=== PATIENT | male | born 1995 | race Hispanic/Latino ===

== ENCOUNTER 2021-10-05 17:16 | Emergency (ER) | payer BC ==
--- OUTSIDE RECORDS SUMMARY | 2021-10-05 17:19 | XMS REPORT | Continuity of Care Document ---
:1995 Author Organization [facility] t Address [address] [place] [address] Care Team Providers Name Role Phone ANNIE PICKERING Attending Clinician Unavailable Payers Payer Name Policy Type Policy Number Effective Date Expiration Date S [facility] [id number] 2018 [place] (ERS-[employer] 00:00:00 CAPITATED) Problems This patient has no known problems. Allergies, Adverse Reactions, Alerts This patient has no known allergies or adverse reactions. Medications This patient has no known medications. Procedures This patient has no known procedures. Encounters Start End Encounter Admission Attending Care Care Encounter Source Date/Time Date/Time Type Type Clinicians Facility Department ID 2021-08-15 Outpatient IBNS IBNS [id number] Fuentes 11:20:00 [id number] Guero 2021-04-05 2021-04-05 Outpatient YESSENIA PICKERING [id number] 94 [place] 00:00:00 00:00:00 ANNIE da silva Results This patient has no known results.
--- NOTE | 2021-10-05 18:09 | RAD REPORT ---
EXAM DESCRIPTION: RAD - Foot Right 3 View - 10/05/2021 5:57 pm CLINICAL HISTORY: PAIN COMPARISON: <Comparisons> FINDINGS/IMPRESSION: No acute fracture. No malalignment. Plantar and dorsal aspect calcaneal spurprem madden
--- NOTE | 2021-10-05 18:58 | ER ---
Nurse's Notes [facility] Name: Wayne Denny Age: 26 yrs Sex: Male : 1995 Arrival Date: 10/05/2021 Time: 17:33 Bed Waiting Private MD: Diagnosis: Pain in right foot Presentation: 10/05 17:38 Chief complaint: Patient states: right heel pain that began 2 days ago, denies known aa5 injury. Coronavirus screen: At this time, the client does not indicate any symptoms associated with coronavirus-19. Ebola Screen: Patient denies travel to an Ebola-affected area in the 21 days before illness onset. Initial Sepsis Screen: Does the patient meet any 2 criteria? HR > 90 bpm. Does the patient have a suspected source of infection? No. Patient's initial sepsis screen is negative. Risk Assessment: Do you want to hurt yourself or someone else? Patient reports no desire to harm self or others. Onset of symptoms was September 2021. 17:38 Acuity: VANDA 4 aa5 17:38 Method Of Arrival: Ambulatory aa5 Historical: - Allergies: 17:37 No Known Allergies; aa5 - PMHx: 17:37 Hypertensive disorder; aa5 - PSHx: 17:37 None; aa5 - Immunization history:: Adult Immunizations unknown. - Social history:: Smoking status: Patient/guardian denies using tobacco. Assessment: 19:06 Reassessment: Patient is alert, oriented x 3, equal unlabored respirations, skin aa5 warm/dry/pink. Vital Signs: 17:38 BP 172 / 90; Pulse 99; Resp 18 S; Temp 98.9(O); Pulse Ox 99% on R/A; Weight 122.47 kg aa5 (R); Height 5 ft. 10 in. (177.80 cm) (R); 17:38 Body Mass Index 38.74 (122.47 kg, 177.80 cm) aa5 ED Course: 17:33 Patient arrived in ED. aa5 17:35 Swetha Villalobos FNP-C is PHCP. kb 17:35 Jermaine Walker DO is Attending Physician. kb 17:38 Arm band placed on. aa5 17:39 Triage completed. aa5 17:58 Foot Right 3 View XRAY In Process Unspecified. EDMS 19:06 No provider procedures requiring assistance completed. Patient did not have IV access aa5 during this emergency room visit. Administered Medications: No medications were administered Outcome: 18:57 Discharge ordered by MD. bender 19:06 Discharged to home ambulatory, with significant other. aa5 19:06 Condition: stable 19:06 Discharge instructions given to patient, Instructed on discharge instructions, follow up and referral plans. Demonstrated understanding of instructions, follow-up care. 19:06 Patient left the ED. aa5 Signatures: Dispatcher [employer] EDSwetha Ortiz, COMIC BOOK ARTIST-C COMIC BOOK ARTIST-Shannon Callahan RN RN aa5 Corrections: (The following items were deleted from the chart) 17:39 17:38 Pulse 99bpm; Resp 18bpm; Spontaneous; Pulse Ox 99% RA; 122.47 kg Reported; Height aa5 5 ft. 10 in. Reported; BMI: 38.7; aa5
--- NOTE | 2021-10-05 18:58 | EDPHYS ---
Physician Documentation [facility] Name: Wayne Denny Age: 26 yrs Sex: Male : 1995 Arrival Date: 10/05/2021 Time: 17:33 Bed Waiting Private MD: ED Physician Jermaine Walker HPI: 10/05 18:55 This 26 yrs old Male presents to ER via Ambulatory with complaints of Foot kb Pain. 18:55 The patient presents with pain. The complaints affect the right foot. Context: The kb problem was sustained at home, resulted from an unknown cause, the patient can fully bear weight, the patient is able to ambulate. Onset: The symptoms/episode began/occurred 2 day(s) ago. Modifying factors: The symptoms are alleviated by nothing, the symptoms are aggravated by nothing. Associated signs and symptoms: The patient has no apparent associated signs or symptoms. Severity of symptoms: At their worst the symptoms were mild, in the emergency department the symptoms are unchanged. The patient has experienced similar episodes in the past. The patient has not recently seen a physician. Pt reports right heel pain that started 2 days ago. Denies injury. States he has had this pain in the past, but it normally goes away after a few minutes. . Historical: - Allergies: 17:37 No Known Allergies; aa5 - PMHx: 17:37 Hypertensive disorder; aa5 - PSHx: 17:37 None; aa5 - Immunization history:: Adult Immunizations unknown. - Social history:: Smoking status: Patient/guardian denies using tobacco. ROS: 18:54 Constitutional: Negative for fever, chills, and weight loss. kb 18:54 MS/extremity: Positive for pain, of the heel of right foot. 18:54 All other systems are negative. Exam: 18:55 Constitutional: This is a well developed, well nourished patient who is awake, alert, kb and in no acute distress. Head/Face: Normocephalic, atraumatic. ENT: Moist Mucous membranes Respiratory: Respirations even and unlabored. No increased work of breathing. Talking in full sentences Skin: Warm, dry with normal turgor. Normal color. MS/ Extremity: Pulses equal, no cyanosis. Neurovascular intact. Full, normal range of motion. Neuro: Awake and alert, GCS 15, oriented to person, place, time, and situation. Moves all extremities. Normal gait. Psych: Awake, alert, with orientation to person, place and time. Behavior, mood, and affect are within normal limits. Vital Signs: 17:38 BP 172 / 90; Pulse 99; Resp 18 S; Temp 98.9(O); Pulse Ox 99% on R/A; Weight 122.47 kg aa5 (R); Height 5 ft. 10 in. (177.80 cm) (R); 17:38 Body Mass Index 38.74 (122.47 kg, 177.80 cm) aa5 MDM: 17:38 Patient medically screened. kb 18:54 Data reviewed: vital signs, nurses notes. Data interpreted: Pulse oximetry: on room air kb is 99 %. Interpretation: normal. Counseling: I had a detailed discussion with the patient and/or guardian regarding: the historical points, exam findings, and any diagnostic results supporting the discharge/admit diagnosis, radiology results, the need for outpatient follow up, a technology infusion specialist, to return to the emergency department if symptoms worsen or persist or if there are any questions or concerns that arise at home. 10/05 17:40 Order name: Foot Right 3 View XRAY; Complete Time: 18:10 kb Administered Medications: No medications were administered Disposition: 19:57 Co-signature as Attending Physician, Jermaine Walker DO I was immediately available on-site ms3 in the Emergency Department for consultation in the care of the patient.. Disposition Summary: 10/05/21 18:57 Discharge Ordered Location: Home kb Condition: Stable kb Diagnosis - Pain in right foot kb Followup: kb - With: Emergency Department - When: As needed - Reason: Worsening of condition Followup: kb - With: Private Physician - When: 2 - 3 days - Reason: Recheck today's complaints, Continuance of care, Re-evaluation by your physician Discharge Instructions: - Discharge Summary Sheet kb - Musculoskeletal Pain kb Forms: - Medication Reconciliation Form kb - Thank You Letter kb - Antibiotic Education kb - Prescription Opioid Use kb - Work release form aa5 Signatures: Dispatcher [employer] Swetha Donato, Shannon Nicolas, RN RN aa5 Jermaine Walker DO DO ms3
[2021-10-05 19:15] VITALS: BP 172/90; TEMP 98.9; O2SAT 99
== END 2021-10-05 19:06 | disposition home or self-care (01) ==
LOC: ER 17:16
DX: M79.671 Pain in right foot (principal); I10 Essential (primary) hypertension
CPT/HCPCS: 99283

== ENCOUNTER 2023-03-12 16:41 | Emergency (ER) | payer BC ==
--- OUTSIDE RECORDS SUMMARY | 2023-03-12 16:44 | XMS REPORT | Continuity of Care Document ---
:1995 Author Organization [facility] t Address [address] [facility] [address] [place] [id number] Care Team Providers Name Role Phone PCP, PATIENT DOES NOT HAVE A Primary Care Physician Unavaila ble MIRLANDE ANGULO Attending Clinician Unavailable Only, Ang Db Test Attending Clinician Unavailable Mirlande Kahn Attending Clinician ANNIE PICKERING Attending Clinician Unavailable Payers Payer Name Policy Type Policy Number Effective Date Expiration Date S [facility] [id number] 2018 00:00:00 [facility] OF [id number] 2018 [place] [facility] 00:00:00 CAPITATED) Problems This patient has no known problems. Allergies, Adverse Reactions, Alerts Allergy Allergy Status Severity Reaction(s) Onset Inactive Treating Comm ents Source Name Type Date Date Clinician NO KNOWN Drug Active [facility] Social History Social Habit Start Date Stop Date Quantity Comments Source Exposure to 2021-10-27 2021-11-06 Not sure [facility] SARS-CoV-2 (event) 00:00:00 10:10:00 Medica l Branch Sex Assigned At [birth year] [facility] 00:00:00 00:00:00 Medical Branch Smoking Status Start Date Stop Date Source Tobacco smoking consumption [facility] Medical unknown Branch Medications This patient has no known medications. Procedures This patient has no known procedures. Encounters Start End Encounter Admission Attending Care Care Encounter Source Date/Time Date/Time Type Type Clinicians Facility Department ID 2021-08-15 Outpatient IBNS IBNS [id number] Fuentes 11:20:00 [id number] [facility]ero 2021-11-06 2021-11-06 Outpatient R [facility] [id number] [facility] 10:00:00 10:10:23 MIRLANDE villalobos [facility] 2021-11-06 2021-11-06 Laboratory Only, Ang Db Test [facility] 1.2.8 [id number] Univers 10:00:00 10:10:23 [facility] [id number] alesha winston DONALDSON [id number] Jeffy as JESSICA?BLEA [id number] [address] MEDICAL OFFICE BUILDING 2021-04-05 2021-04-05 Outpatient YESSENIA PICKERING [id number] [place] 00:00:00 00:00:00 ANNIE da silva Results This patient has no known results.
[2023-03-12] MEDS ORDERED: AMLODIPINE 5 MG TAB ONE (17:20)
[2023-03-12] MEDS ORDERED: METOPROLOL TAR 25 MG TAB ONE (17:20)
[2023-03-12 17:43] LABS: Specific Gravity 1.018 (1.005-1.030); Urine Bacteria None Seen /HPF (<20); Urine Bilirubin NEGATIVE (Negative); Urine Blood 1+ (Negative); Urine Clarity Extremely Turbid (Clear); Urine Color Light-Yellow (Yellow); Urine Glucose NEGATIVE (Negative); Urine Mucus Slight /HPF (None Seen); Urine Protein TRACE (Negative); Urine Urobilinogen Normal (Normal)
--- NOTE | 2023-03-12 19:20 | RAD REPORT ---
EXAM DESCRIPTION: - CP - 03/12/2023 7:12 pm CLINICAL HISTORY: PAIN COMPARISON: No comparisons TECHNIQUE: Real-time sonographic evaluation of both carotid systems was performed. Doppler interroga tion was performed with waveform tracing bilaterally. FINDINGS: Normal high resistance waveforms are noted in both external carotid arteries. The common c arotid arteries and internal carotid arteries show normal low resistance waveforms. No significant plaque formation is seen. Peak systolic and end diastolic velocity values and the ICA/ CCA ratios are in the non-hemodynamically significant range. Antegrade flow seen in both vertebral arteries. IMPRESSION: No significant atherosclerotic changes noted. No evidence of a hemodynamically significant stenosis.
--- NOTE | 2023-03-12 19:24 | EDPHYS ---
Physician Documentation [facility] Name: Wayne Denny Age: 27 yrs Sex: Male : 1995 Arrival Date: 03/12/2023 Time: 16:41 Bed 8 Private MD: ED Physician Jose David Coffman HPI: 03/12 17:27 This 27 yrs old Male presents to ER via Ambulatory with complaints of Urinary snw Problem. 17:27 Onset: The symptoms/episode began/occurred acutely. Associated signs and symptoms: snw Pertinent positives: noted blood in urine, denies pain. The patient has not recently seen a physician. pt did not take his medications today. Historical: - Allergies: 17:01 No Known Allergies; nj1 - PMHx: 17:01 Hypertensive disorder; nj1 - PSHx: 17:01 None; nj1 - Immunization history:: Client reports receiving the 2nd dose of the Covid vaccine. - Social history:: Smoking status: Patient denies any tobacco usage or history of. ROS: 17:27 Constitutional: Negative for fever, chills, and weight loss, Eyes: Negative for injury, snw pain, redness, and discharge, ENT: Negative for injury, pain, and discharge, Neck: Negative for injury, pain, and swelling, Cardiovascular: Negative for chest pain, palpitations, and edema, Respiratory: Negative for shortness of breath, cough, wheezing, and pleuritic chest pain, Abdomen/GI: Negative for abdominal pain, nausea, vomiting, diarrhea, and constipation, Back: Negative for injury and pain, MS/Extremity: Negative for injury and deformity, Skin: Negative for injury, rash, and discoloration, Neuro: Negative for headache, weakness, numbness, tingling, and seizure, Psych: Negative for depression, anxiety, suicide ideation, homicidal ideation, and hallucinations, 17:27 : Positive for hematuria, Negative for urinary symptoms, burning with urination, difficulty urinating, Exam: 17:27 Constitutional: This is a well developed, well nourished patient who is awake, alert, snw and in no acute distress. Head/Face: Normocephalic, atraumatic. Eyes: Pupils equal round and reactive to light, extra-ocular motions intact. Lids and lashes normal. Conjunctiva and sclera are non-icteric and not injected. Cornea within normal limits. Periorbital areas with no swelling, redness, or edema. ENT: Nares patent. No nasal discharge, no septal abnormalities noted. Tympanic membranes are normal and external auditory canals are clear. Oropharynx with no redness, swelling, or masses, exudates, or evidence of obstruction, uvula midline. Mucous membranes moist. Neck: Trachea midline, no thyromegaly or masses palpated, and no cervical lymphadenopathy. Supple, full range of motion without nuchal rigidity, or vertebral point tenderness. No Meningismus. Chest/axilla: Normal chest wall appearance and motion. Nontender with no deformity. No lesions are appreciated. Cardiovascular: Regular rate and rhythm with a normal S1 and S2. No gallops, murmurs, or rubs. Normal PMI, no JVD. No pulse deficits. Respiratory: Lungs have equal breath sounds bilaterally, clear to auscultation and percussion. No rales, rhonchi or wheezes noted. No increased work of breathing, no retractions or nasal flaring. Abdomen/GI: Soft, non-tender, with normal bowel sounds. No distension or tympany. No guarding or rebound. No evidence of tenderness throughout. Back: No spinal tenderness. No costovertebral tenderness. Full range of motion. Skin: Warm, dry with normal turgor. Normal color with no rashes, no lesions, and no evidence of cellulitis. MS/ Extremity: Pulses equal, no cyanosis. Neurovascular intact. Full, normal range of motion. Neuro: Awake and alert, GCS 15, oriented to person, place, time, and situation. Cranial nerves II-XII grossly intact. Motor strength 5/5 in all extremities. Sensory grossly intact. Cerebellar exam normal. Normal gait. Psych: Awake, alert, with orientation to person, place and time. Behavior, mood, and affect are within normal limits. Vital Signs: 16:59 BP 166 / 117; Pulse 84; Resp 18; Temp 99.1; Pulse Ox 100% ; Weight 117.93 kg; Height 5 nj1 ft. 10 in. ; Pain 0/10; 17:33 BP 159 / 103; Pulse 77; Resp 18; Pulse Ox 96% on R/A; Pain 0/10; mb9 18:05 BP 145 / 107; Pulse 67; Resp 18; Pulse Ox 97% on R/A; mb9 19:04 BP 160 / 103; Pulse 73; Resp 18; Pulse Ox 98% ; jj7 19:32 BP 153 / 90; Pulse 74; Resp 16; Pulse Ox 100% on R/A; mb9 16:59 Body Mass Index 37.30 (117.93 kg, 177.8 cm) nj1 16:59 Pain Scale: Adult nj1 17:33 Pain Scale: Adult mb9 MDM: 17:12 Patient medically screened. snw 17:29 Differential diagnosis: viral Infection, bacterial infection, UTI. Data reviewed: vital snw signs, nurses notes. 18:00 ED course: pt complains of long standing right lateral neck pain. Finished rx of medrol snw dose pack and then baclofen, denies abd pain, trauma, no bounding of abdominal aorta. 03/12 17:02 Order name: Urine W/Microscopic (UAM); Complete Time: 17:47 snw 03/12 18:15 Order name: Carotid Artery Bilateral US; Complete Time: 19:22 snw Administered Medications: 17:09 Drug: Metoprolol PO 25 mg PO once Route: PO; mb9 18:11 Follow up: Response: No adverse reaction mb9 17:09 Drug: amLODIPine PO 5 mg PO once Route: PO; mb9 18:11 Follow up: Response: No adverse reaction mb9 Disposition Summary: 03/12/23 19:23 Discharge Ordered Notes: Location: Home snw Condition: Stable snw Diagnosis - Essential (primary) hypertension snw - Hematuria, unspecified snw Followup: snw - With: Emergency Department - When: As needed - Reason: Worsening of condition Followup: snw - With: Private Physician - When: 5 - 6 days - Reason: Recheck today's complaints, Continuance of care, Re-evaluation by your physician Discharge Instructions: - Discharge Summary Sheet snw - Hematuria, Adult snw - Hypertension, Adult snw - DASH Eating Plan snw - Rehydration, Adult snw - Form - Blood Pressure Record Sheet snw Forms: - Work release form snw - Medication Reconciliation Form snw - Thank You Letter snw - Antibiotic Education snw - Prescription Opioid Use snw - Patient Portal Instructions snw - Leadership Thank You Letter snw Signatures: Dispatcher [employer] Lin Vargas FNP-C MOTOR ROOM CONTROLLER-Csnw Yandy Duranh, RN RN mb9 Maty Britt, RN RN nj1
--- NOTE | 2023-03-12 19:24 | ER ---
Nurse's Notes [facility] Name: Wayne Denny Age: 27 yrs Sex: Male : 1995 Arrival Date: 03/12/2023 Time: 16:41 Bed 8 Private MD: Diagnosis: Essential (primary) hypertension;Hematuria, unspecified Presentation: 03/12 16:59 Chief complaint: Patient states: Noticed blood when he urinated last. Denies pain. [facility] Coronavirus screen: Vaccine status: Patient reports receiving the 2nd dose of the covid vaccine. Ebola Screen: Patient denies travel to an Ebola-affected area in the 21 days before illness onset. Initial Sepsis Screen: Does the patient meet any 2 criteria? No. Patient's initial sepsis screen is negative. Does the patient have a suspected source of infection? No. Patient's initial sepsis screen is negative. Risk Assessment: Do you want to hurt yourself or someone else? Patient reports no desire to harm self or others. Onset of symptoms was March 12, 2023. 16:59 Method Of Arrival: Ambulatory [facility] 16:59 Acuity: VANDA 3 nj Historical: - Allergies: 17:01 No Known Allergies; nj1 - PMHx: 17:01 Hypertensive disorder; nj1 - PSHx: 17:01 None; nj1 - Immunization history:: Client reports receiving the 2nd dose of the Covid vaccine. - Social history:: Smoking status: Patient denies any tobacco usage or history of. Screenin:10 [facility] ED Fall Risk Assessment (Adult) History of falling in the last 3 months, mb9 including since admission No falls in past 3 months (0 pts) Confusion or Disorientation No (0 pts) Intoxicated or Sedated No (0 pts) Impaired Gait No (0 pts) Mobility Assist Device Used No (0 pt) Altered Elimination No (0 pt) Score/Fall Risk Level 0 - 2 = Low Risk Oriented to surroundings, Maintained a safe environment, Educated pt \T\ family on fall prevention, incl call for assistance when getting out of bed. Abuse screen: Denies threats or abuse. Nutritional screening: No deficits noted. Tuberculosis screening: No symptoms or risk factors identified. Assessment: 17:09 General: Appears in no apparent distress. Behavior is calm, cooperative. Pain: Denies mb9 pain. Neuro: [place] Agitation-Sedation Scale (RASS): 0 - Alert and Calm Level of Consciousness is awake, alert, obeys commands, Oriented to person, place, time, situation, Appropriate for age. Cardiovascular: Patient's skin is warm and dry. Respiratory: Airway is patent Respiratory effort is even, unlabored, Respiratory pattern is regular, symmetrical. GI: Abdomen is round non-distended, Bowel sounds present X 4 quads. : Reports urinating blood. EENT: No signs and/or symptoms were reported regarding the EENT system. Derm: Skin is pink, warm \T\ dry. Musculoskeletal: Range of motion: intact in all extremities. 18:05 Reassessment: No changes from previously documented assessment. Patient and/or family mb9 updated on plan of care and expected duration. Pain level reassessed. Patient is alert, oriented x 3, equal unlabored respirations, skin warm/dry/pink. : Urine is clear. Vital Signs: 16:59 BP 166 / 117; Pulse 84; Resp 18; Temp 99.1; Pulse Ox 100% ; Weight 117.93 kg; Height 5 nj1 ft. 10 in. ; Pain 0/10; 17:33 BP 159 / 103; Pulse 77; Resp 18; Pulse Ox 96% on R/A; Pain 0/10; mb9 18:05 BP 145 / 107; Pulse 67; Resp 18; Pulse Ox 97% on R/A; mb9 19:04 BP 160 / 103; Pulse 73; Resp 18; Pulse Ox 98% ; jj7 19:32 BP 153 / 90; Pulse 74; Resp 16; Pulse Ox 100% on R/A; mb9 16:59 Body Mass Index 37.30 (117.93 kg, 177.8 cm) nj1 16:59 Pain Scale: Adult nj1 17:33 Pain Scale: Adult mb9 ED Course: 16:43 Patient arrived in ED. rg4 16:47 [facility]C [facility] snw 16:47 Jose David Coffman MD is Attending Physician. snw 17:01 Triage completed. nj1 17:02 Arm band placed on left wrist. nj1 17:05 Yandy Duran RN is Primary Nurse. mb9 17:10 Placed in gown. Bed in low position. Call light in reach. Side rails up X 1. Client mb9 placed on continuous cardiac and pulse oximetry monitoring. NIBP monitoring applied. 18:28 No provider procedures requiring assistance completed. Patient did not have IV access mb9 during this emergency room visit. 19:13 Carotid Artery Bilateral US In Process Unspecified. EDMS Administered Medications: 17:09 Drug: Metoprolol PO 25 mg PO once Route: PO; mb9 18:11 Follow up: Response: No adverse reaction mb9 17:09 Drug: amLODIPine PO 5 mg PO once Route: PO; mb9 18:11 Follow up: Response: No adverse reaction mb9 Medication: 17:11 VIS not applicable for this client. mb9 Outcome: 19:23 Discharge ordered by . snw 19:32 Discharged to home ambulatory, mb9 19:32 Condition: stable 19:32 Discharge instructions given to patient, Instructed on discharge instructions, follow up and referral plans. Demonstrated understanding of instructions, follow-up care, 19:32 Patient left the ED. mb9 Signatures: Dispatcher [employer] EDMS Lin Ashby, CEMENT FINISHER APPRENTICE-C CEMENT FINISHER APPRENTICE-Maryam Coronel rg4 Denisha Kimbrough, RN RN ko1 Amy Michelle RN RN jj7 Yandy Duran RN RN mb9 Maty Britt, RN RN nj1 Corrections: (The following items were deleted from the chart) 17:02 16:59 Pulse 84bpm; Resp 18bpm; Pulse Ox 100%; Temp 99.1F; 117.93 kg; Height 5 ft. 10 nj1 in.; BMI: 37.3; Pain 0/10, Adult; nj1 18:11 18:05 BP 150 / 103; Pulse 67bpm; Resp 18bpm; Pulse Ox 97% RA; mb9 mb9 18:25 18:23 BP 170 / 82; Pulse 68bpm; Resp 16bpm; Pulse Ox 98%; ko1 ko1
[2023-03-12 20:08] VITALS: TEMP 99.1
[2023-03-12 20:29] VITALS: BP 153/90; O2SAT 100
== END 2023-03-12 19:32 | disposition home or self-care (01) ==
LOC: ER 16:41
DX: R31.9 Hematuria, unspecified (principal); I10 Essential (primary) hypertension
CPT/HCPCS: 81001; 93880; 99284

== ENCOUNTER 2023-03-15 09:22 | Emergency (ER) | payer BC ==
--- OUTSIDE RECORDS SUMMARY | 2023-03-15 09:25 | XMS REPORT | Continuity of Care Document ---
:1995 Author Organization [facility] t Address [address] [place] [id number] Care Team Providers Name Role Phone PCP, PATIENT DOES NOT HAVE A Primary Care Physician Unavaila ble MIRLANDE ANGULO Attending Clinician Unavailable Only, Ang Db Test Attending Clinician Unavailable Mirlande Kahn Attending Clinician ANNIE PICKERING Attending Clinician Unavailable Payers Payer Name Policy Type Policy Number Effective Date Expiration Date S [facility] [employer] [id number] 2018 00:00:00 [employer] [facility] [id number] 2018 [facility] 00:00:00 CAPITATED) Problems This patient has no known problems. Allergies, Adverse Reactions, Alerts Allergy Allergy Status Severity Reaction(s) Onset Inactive Treating Comm ents Source Name Type Date Date Clinician NO KNOWN Drug Active [facility] Social History Social Habit Start Date Stop Date Quantity Comments Source Exposure to 2021-10-27 2021-11-06 Not sure [facility] SARS-CoV-2 (event) 00:00:00 10:10:00 Medica l Branch Sex Assigned At [birth year] [facility] 00:00:00 00:00:00 Medical Branch Smoking Status Start Date Stop Date Source Tobacco smoking consumption [facility] Medical unknown Branch Medications This patient has no known medications. Procedures This patient has no known procedures. Encounters Start End Encounter Admission Attending Care Care Encounter Source Date/Time Date/Time Type Type Clinicians Facility Department ID 2021-08-15 Outpatient IBNS IBNS [id number] Fuentes 11:20:00 [id number] Guero 2021-11-06 2021-11-06 Outpatient R ADELE [facility] [id number] [facility] 10:00:00 10:10:23 MIRLANDE villalobos [facility] 2021-11-06 2021-11-06 Laboratory Only, Ang Db Test [facility] [id number] Univers 10:00:00 10:10:23 [facility] [id number] alesha winston [place] [id number] Jeffy as JESSICA?BLEA [id number] [address] MEDICAL OFFICE BUILDING 2021-04-05 2021-04-05 Outpatient YESSENIA PICKERING [id number] 94 [place] 00:00:00 00:00:00 ANNIE da silva Results This patient has no known results.
[2023-03-15 10:01] LABS: Absolute Lymphocytes (CBC) 1.2 K/uL (0.7-4.9); Hematocrit 47.7 % (39.6-49.0); Lymphocytes % 14.2 % (15.3-44.8); MCV 86.8 fL (80-100); MPV 11.6 fL (7.6-11.3); Platelets 205 thou/uL (152-406)
[2023-03-15 10:08] LABS: Specific Gravity 1.021 (1.005-1.030); Urine Bacteria None Seen /HPF (<20); Urine Bilirubin NEGATIVE (Negative); Urine Blood 1+ (Negative); Urine Clarity Turbid (Clear); Urine Color Light-Yellow (Yellow); Urine Glucose NEGATIVE (Negative); Urine Protein TRACE (Negative); Urine RBC 21-50 /HPF (None Seen); Urine Urobilinogen Normal (Normal)
[2023-03-15 10:20] LABS: Potassium 3.6 mEq/L (3.5-5.1)
--- NOTE | 2023-03-15 12:20 | RAD REPORT ---
EXAM DESCRIPTION: CT - Stone Protocol - 03/15/2023 11:24 am CLINICAL HISTORY: Hematuria COMPARISON: None. TECHNIQUE: Computed axial tomography of the abdomen pelvis was obtained without oral or IV contrast. Lack of IV and oral contrast limits evaluation of solid organs, appendix, bowel, and vessels. [place] reformatted images were obtained and reviewed. All CT scans are performed using dose optimization technique as appropriate and may include automated exposure control or mA/KV adjustment according to patient size. FINDINGS: Tiny left renal calculi. No hydronephrosis. A right renal calculus is not seen. [address] complex cyst right kidney. Hounsfield unit 26. It contains a small calcification. No ureteral calculi. No bladder calculi. The liver, spleen, pancreas and adrenals appear grossly normal There is no evidence of diverticulitis. The appendix appears normal Small left inguinal hernia IMPRESSION: Tiny nonobstructing left renal calculi 16 millimeter complex cyst right kidney. A followup renal ultrasound in 3 months is recommended for r e-evaluation
--- NOTE | 2023-03-15 12:59 | ER ---
Nurse's Notes [facility] Name: Wayne Denny Age: 27 yrs Sex: Male : 1995 Arrival Date: 03/15/2023 Time: 09:22 Bed 17 Private MD: Diagnosis: Hematuria, unspecified;Calculus of kidney Presentation: 03/15 09:31 Chief complaint: Patient states: Blood in semen today. Here 2 days ago for blood in ll1 urine. No fever. Coronavirus screen: Vaccine status: Patient reports receiving the 2nd dose of the covid vaccine. Client denies travel out of the [place] in the last 14 days. At this time, the client does not indicate any symptoms associated with coronavirus-19. Ebola Screen: Patient denies travel to an Ebola-affected area in the 21 days before illness onset. Initial Sepsis Screen: Does the patient meet any 2 criteria? No. Patient's initial sepsis screen is negative. Does the patient have a suspected source of infection? No. Patient's initial sepsis screen is negative. Risk Assessment: Do you want to hurt yourself or someone else? Patient reports no desire to harm self or others. Onset of symptoms was March 15, 2023. 09:31 Method Of Arrival: Ambulatory ll1 09:31 Acuity: VANDA 3 ll1 Triage Assessment: 09:34 General: Appears in no apparent distress. Behavior is calm, cooperative, appropriate ll1 for age. Pain: Denies pain. : Reports blood in semen. Historical: - Allergies: 09:31 No Known Allergies; ll1 - PMHx: 09:31 Hypertensive disorder; ll1 - PSHx: 09:31 Vasectomy; ll1 - Immunization history:: Client reports receiving the 2nd dose of the Covid vaccine, Adult Immunizations . - Social history:: Smoking status: Patient denies any tobacco usage or history of. Screenin:30 [facility] ED Fall Risk Assessment (Adult) Score/Fall Risk Level 0 - 2 = Low Risk. Abuse eh3 screen: Denies threats or abuse. Denies injuries from another. Nutritional screening: No deficits noted. Tuberculosis screening: No symptoms or risk factors identified. Assessment: 09:30 General: Appears in no apparent distress. uncomfortable, Behavior is calm, cooperative, eh3 appropriate for age. Pain: Denies pain. Neuro: Level of Consciousness is awake, alert, obeys commands, Oriented to person, place, time, situation. Cardiovascular: Capillary refill < 3 seconds Patient's skin is warm and dry. Respiratory: Airway is patent Respiratory effort is even, unlabored, Respiratory pattern is regular, symmetrical. GI: Abdomen is round non-distended. : Reports blood in semen. Derm: Skin is pink, warm \T\ dry. Musculoskeletal: Circulation, motion, and sensation intact. 10:30 Reassessment: Patient appears in no apparent distress at this time. Patient and/or eh3 family updated on plan of care and expected duration. Pain level reassessed. Patient is alert, oriented x 3, equal unlabored respirations, skin warm/dry/pink. 11:30 Reassessment: Patient appears in no apparent distress at this time. Patient and/or eh3 family updated on plan of care and expected duration. Pain level reassessed. Patient is alert, oriented x 3, equal unlabored respirations, skin warm/dry/pink. Vital Signs: 09:31 BP 169 / 104; Pulse 80; Resp 17; Temp 98; Pulse Ox 96% on R/A; Weight 117.93 kg; Height ll1 5 ft. 10 in. ; Pain 0/10; 10:30 BP 155 / 102; Pulse 71; Resp 16; Pulse Ox 97% on R/A; eh3 11:30 BP 157 / 105; Pulse 79; Resp 16; Pulse Ox 98% on R/A; eh3 09:31 Body Mass Index 37.31 (117.93 kg, 177.8 cm) ll1 09:31 Pain Scale: Adult ll1 ED Course: 09:24 Patient arrived in ED. mg5 09:24 Rome Schultz PA is PHCP. cp 09:24 Marty Kaba MD is Attending Physician. cp 09:30 Patient has correct armband on for positive identification. Placed in gown. Bed in low eh3 position. Call light in reach. Side rails up X2. Provided Education on: use of call martinez. Pulse ox on. NIBP on. 09:31 Arm band placed on Patient placed in an exam room, on a stretcher. ll1 09:34 Triage completed. ll1 09:40 Iwona Randhawa, HUSSEIN is Primary Nurse. eh3 09:45 Inserted saline lock: 20 gauge in right antecubital area, using aseptic technique. eh3 Blood collected. 11:25 CT Stone Protocol In Process Unspecified. EDMS 14:06 US Scrotum Testicles In Process Unspecified. EDMS 15:15 No provider procedures requiring assistance completed. IV discontinued, intact, eh3 bleeding controlled, No redness/swelling at site. Pressure dressing applied. Administered Medications: 13:40 Drug: Acetaminophen PO 1000 mg PO once Route: PO; eh3 14:30 Follow up: Response: No adverse reaction eh3 13:45 Drug: Rocephin IV 1 grams IV at calculated rate once; Given slow IV push per pharmacy eh3 instructions Route: IV; Rate: calculated rate; Site: right antecubital; 13:55 Follow up: Response: No adverse reaction; IV Status: Completed infusion; IV Intake: [id number] 13:50 Drug: Zithromax IVPB 500 mg IVPB once over 1 hrs; mix in 250 mL NS Route: IVPB; Infused eh3 Over: 1 hrs; Site: right antecubital; 21:34 Follow up: Response: No adverse reaction; IV Status: Completed infusion; IV Intake: eh3 250ml Medication: 15:15 VIS not applicable for this client. eh3 Intake: 13:55 IV: 50ml; Total: 50ml. eh3 21:34 IV: 250ml; Total: 300ml. eh3 Outcome: 12:59 Discharge ordered by MD. cp 15:15 Discharged to home ambulatory, eh3 15:15 Condition: stable 15:15 Discharge instructions given to patient, Instructed on discharge instructions, follow up and referral plans. medication usage, Demonstrated understanding of instructions, follow-up care, medications, Prescriptions given X 1, 15:28 Patient left the ED. ll1 Signatures: Dispatcher [employer] EDUT Rome Schultz PA PA cp Lewis, Lynsay RN RN 1 Iwona Randhawa RN RN 3 Kat Vera mg5
--- NOTE | 2023-03-15 12:59 | EDPHYS ---
Physician Documentation [facility] Name: Wayne Denny Age: 27 yrs Sex: Male : 1995 Arrival Date: 03/15/2023 Time: 09:22 Bed 17 Private MD: ED Physician Marty Kaba HPI: 03/15 09:35 This 27 yrs old Male presents to ER via Ambulatory with complaints of Blood in cp Semen. 09:35 The patient presents with testicular pain and blood in semen. cp 09:35 Onset: The symptoms/episode began/occurred this morning. Associated signs and symptoms: cp Pertinent negatives: constipation, diarrhea, dysuria, fever, hematuria, vomiting. Severity of symptoms: in the emergency department the symptoms are unchanged, despite home interventions. Historical: - Allergies: :31 No Known Allergies; ll1 - PMHx: 09:31 Hypertensive disorder; ll1 - PSHx: :31 Vasectomy; ll1 - Immunization history:: Client reports receiving the 2nd dose of the Covid vaccine, Adult Immunizations . - Social history:: Smoking status: Patient denies any tobacco usage or history of. ROS: 09:36 : Positive for testicular pain blood in semen, cp 09:36 Eyes: Negative for injury, pain, redness, and discharge, cp 09:36 Constitutional: Negative for body aches, chills, fever, poor PO intake, 09:36 ENT: Negative for drainage from ear(s), ear pain, sore throat, difficulty swallowing, difficulty handling secretions, 09:36 Cardiovascular: Negative for chest pain, palpitations, 09:36 Respiratory: Negative for cough, shortness of breath, wheezing, 09:36 Abdomen/GI: Positive for abdominal pain, of the left lower quadrant, Negative for vomiting, diarrhea, constipation, 09:36 Back: Negative for pain at rest, pain with movement, 09:36 Neuro: Negative for altered mental status, dizziness, headache, weakness, 09:36 All other systems are negative, Exam: 09:40 Constitutional: The patient appears in no acute distress, alert, awake, comfortable, cp non-toxic, well developed, well nourished, obese, 09:40 Head/Face: Normocephalic, atraumatic. cp 09:40 Eyes: Periorbital structures: appear normal, Conjunctiva: normal, no exudate, no injection, Sclera: no appreciated abnormality, Lids and lashes: appear normal, bilaterally, 09:40 ENT: External ear(s): are unremarkable, Nose: is normal, Mouth: Lips: moist, Oral mucosa: moist, Posterior pharynx: is normal, airway is patent, no erythema, no exudate, 09:40 Chest/axilla: Inspection: normal, 09:40 Cardiovascular: Rate: normal, 09:40 Respiratory: the patient does not display signs of respiratory distress, Respirations: normal, no use of accessory muscles, no retractions, labored breathing, is not present, Breath sounds: are clear throughout, no decreased breath sounds, no stridor, no wheezing, 09:40 Abdomen/GI: Inspection: abdomen appears normal, Bowel sounds: active, all quadrants, Palpation: soft, in all quadrants, mild abdominal tenderness, in the left lower quadrant, rebound tenderness, is not appreciated, 09:40 Back: pain, is absent, ROM is normal, 09:40 Skin: no rash present. Vital Signs: 09:31 BP 169 / 104; Pulse 80; Resp 17; Temp 98; Pulse Ox 96% on R/A; Weight 117.93 kg; Height ll1 5 ft. 10 in. ; Pain 0/10; 10:30 BP 155 / 102; Pulse 71; Resp 16; Pulse Ox 97% on R/A; eh3 11:30 BP 157 / 105; Pulse 79; Resp 16; Pulse Ox 98% on R/A; eh3 09:31 Body Mass Index 37.31 (117.93 kg, 177.8 cm) ll1 09:31 Pain Scale: Adult ll1 MDM: 09:27 Patient medically screened. 10:00 Differential diagnosis: UTI, prostatitis, urethritis, STI. 12:58 Data reviewed: vital signs, nurses notes, lab test result(s), radiologic studies, CT cp scan, plain films. 12:58 I considered the following discharge prescriptions or medication management in the emergency department Medications were administered in the Emergency Department. See MAR. Care significantly affected by the following chronic conditions: Hypertension. Counseling: I had a detailed discussion with the patient and/or guardian regarding the historical points, exam findings, and any diagnostic results supporting the discharge/admit diagnosis, lab results, radiology results, the need for outpatient follow up, a family practitioner, a urologist, to return to the emergency department if symptoms worsen or persist or if there are any questions or concerns that arise at home. 03/15 09:36 Order name: Urinalysis W/Microscopic; Complete Time: 11:09 cp 03/15 11:09 Interpretation: Normal except: UCLA Turbid; UBLD 1+; UPROT TRACE; URBC 21-50. cp 03/15 09:36 Order name: GC (Polo/Chl) Probe URINE cp 03/15 09:38 Order name: CBC with Diff; Complete Time: 11:09 cp 03/15 11:10 Interpretation: Normal except: RBC 5.50; MPV 11.6; TONIA% 79.0; LYM% 14.2. cp 03/15 09:38 Order name: BMP; Complete Time: 11:09 cp 03/15 09:36 Order name: US Scrotum Testicles; Complete Time: 14:46 cp 03/15 14:46 Interpretation: Report reviewed. cp 03/15 11:10 Order name: CT Stone Protocol; Complete Time: 12:43 cp 03/15 12:44 Interpretation: Report reviewed. cp 03/15 09:39 Order name: IV; Complete Time: 10:00 cp Administered Medications: 13:40 Drug: Acetaminophen PO 1000 mg PO once Route: PO; eh3 14:30 Follow up: Response: No adverse reaction eh3 13:45 Drug: Rocephin IV 1 grams IV at calculated rate once; Given slow IV push per pharmacy eh3 instructions Route: IV; Rate: calculated rate; Site: right antecubital; 13:55 Follow up: Response: No adverse reaction; IV Status: Completed infusion; IV Intake: [id number] 13:50 Drug: Zithromax IVPB 500 mg IVPB once over 1 hrs; mix in 250 mL NS Route: IVPB; Infused eh3 Over: 1 hrs; Site: right antecubital; 21:34 Follow up: Response: No adverse reaction; IV Status: Completed infusion; IV Intake: eh3 250ml Disposition Summary: 03/15/23 12:59 Discharge Ordered Notes: Location: Home cp Problem: new cp Symptoms: have improved cp Condition: Stable cp Diagnosis - Hematuria, unspecified cp - Calculus of kidney cp Followup: cp - With: Private Physician - When: 10 - 14 days - Reason: Recheck today's complaints Discharge Instructions: - Discharge Summary Sheet cp - Hematuria, Adult cp - Kidney Stones cp Forms: - Medication Reconciliation Form cp - Thank You Letter cp - Antibiotic Education cp - Prescription Opioid Use cp - Patient Portal Instructions cp - Leadership Thank You Letter cp Prescriptions: - Doxycycline Hyclate 100 mg Oral Tablet - take 1 tablet ORAL route every 12 hours; 20 tablet; Refills: 0, Product cp Selection Permitted Signatures: Dispatcher [employer] EDMS Rome Schultz PA PA cp Lewis, Lynsay RN RN ll1 Iwona Randhawa RN RN eh3
[2023-03-15] MEDS ORDERED: ACETAMINOPHEN 500 MG TAB ONE (13:45)
[2023-03-15] MEDS ORDERED: CEFTRIAXONE 1000 MG/VIAL ONE (13:45)
[2023-03-15] MEDS ORDERED: AZITHROMYCIN 500 MG INJ IVPB ONE (13:45)
[2023-03-15] MEDS ORDERED: NA CHLORIDE 0.9% 250 ML ONE (13:46)
[2023-03-15] MEDS ORDERED: NA CHLORIDE 0.9% 50 ML ONE (13:46)
--- NOTE | 2023-03-15 14:30 | RAD REPORT ---
EXAM DESCRIPTION: US - Scrotum Testicles - 03/15/2023 2:05 pm CLINICAL HISTORY: Testicular pain COMPARISON: None FINDINGS: Right testicle measures 4.9 x 2.5 x 3.4 centimeters centimeters. Echotexture is homogeneou s. Normal blood flow Left testicle measures 4 x 2.4 x 3.4 centimeters. Echotexture is homogeneous. Normal blood flow The epididymides are normal in size and echotexture. Normal blood flow is seen. IMPRESSION: Unremarkable exam
[2023-03-15 15:47] VITALS: TEMP 98
[2023-03-15 16:03] VITALS: BP 157/105; O2SAT 98
[2023-03-18 07:26] LABS: C.trachomatis RNA,TMA Not Detected (Not Detected)
== END 2023-03-15 15:28 | disposition home or self-care (01) ==
LOC: ER 09:22
DX: N20.0 Calculus of kidney (principal); I10 Essential (primary) hypertension
CPT/HCPCS: 96365; 85025; 81001; 80048; 36415; 87590; 87490; 76377; 74176; 76870; 96375; 99284; 96366; J7050; J0696